=== PATIENT | male | born 2000 | race Caucasian/White ===

== ENCOUNTER 2024-04-15 08:34 | Outpatient (REF) | payer OTHER, SELFPAY ==
--- NOTE | ~2024-04-15 | XR_ITS ---
EXAMINATION: XR SACROILIAC JOINTS CLINICAL INFORMATION: Ankylosing spondylitis of multiple sites in the spine COMPARISON: None available. TECHNIQUE: 3 views of the sacroiliac joints FINDINGS: Bones and soft tissues are normal. No fracture. Alignment is anatomic. Sacroiliac joint spaces are well-maintained without erosions or surrounding sclerosis. XR/XR sacroiliac joint min 3V IMPRESSION: Normal sacroiliac joints.
--- NOTE | ~2024-04-15 | XR_ITS ---
EXAMINATION: XR LUMBOSACRAL SPINE WITH OBLIQUES CLINICAL INFORMATION: Ankylosing spondylitis of multiple sites and spine COMPARISON: None available. TECHNIQUE: AP, both oblique, and lateral views of the lumbar spine. Lateral view of the lumbosacral junction. FINDINGS: There is straightening of the usual lumbar lordosis which can be seen with muscle spasm. The vertebral bodies and posterior elements are normal. The disc spaces are preserved and the vertebral alignment is normal. The paraspinal soft tissues are normal. No syndesmophytes are present. XR/XR lumbar spine 4V min IMPRESSION: 1. Muscle spasm. 2. No evidence of ankylosing spondylitis of the lumbar spine.
[2024-04-15 09:40] LABS: MANUAL DIFF FLAG NO
[2024-04-15 09:57] LABS: Basophils Percent Auto 0.8 % (0-2); Eosinophils Absolute Auto 0.2 X10*3/uL (0.0-0.4); Hematocrit 41.3 % (42.0-52.0); Hemoglobin 14.1 g/dl (14.0-18.0); Imm Gran Abs Auto 0.02 X10*3/uL (0.00-0.03); Imm Gran Pct Auto 0.4 % (0.0-0.4); Lymphocytes Absolute Auto 1.4 X10*3/uL (1.2-4.9); Lymphocytes Percent Auto 27.8 % (20-40); Mean Corpuscular HGB Conc 34.1 g/dl (31.0-36.0); Mean Corpuscular Hemoglobin 31.1 pg (27.0-33.0); Mean Platelet Volume 9.9 fL (9.4-12.4); Monocytes Absolute Auto 0.5 X10*3/uL (0.1-1.2); Monocytes Percent Auto 10.8 % (2-11); Neutrophils Absolute Auto 2.8 x10*3/uL (2.0-8.3); Neutrophils Percent Auto 57.2 % (45-73); Platelet Count 202 X10*3/uL (160-400); Red Blood Count 4.54 X10*6/uL (4.60-5.80); White Blood Count 4.9 X10*3/uL (4.8-10.8)
[2024-04-15 10:26] LABS: Alanine Aminotransferase 13 U/L (0-40); Albumin Level 4.6 g/dL (3.5-5.0); Alkaline Phosphatase 56 U/L (39-117); Anion Gap 11 (12-20); Aspartate Amino Transferase 20 U/L (5-37); Bilirubin Total 0.5 mg/dL (0.0-1.0); Blood Urea Nitrogen 13 mg/dL (9-16); C Reactive Protein < 0.10 mg/dL (< or = 0.50); Calcium 9.8 mg/dL (8.4-10.2); Carbon Dioxide 27 mmol/L (22-29); Chloride 108 mmol/L (96-108); Estimated Glomerular Filt Rate > 60; Glucose Random 74 mg/dL (60-115); Potassium 4.2 mmol/L (3.3-5.1); Sodium 142 mmol/L (135-145); Total Protein 7.2 g/dL (6.5-8.0)
[2024-04-15 10:38] LABS: Erythrocyte Sedimentation Rate 3 MM/HR (0-15); HBS Num1 0.78 mIU/mL (0-7.99); HBc Num1 0.13 S/CO (0.00-0.79); HBsAGNum1 0.22 S/CO (0.00-0.99); Hepatitis A Antibody IgM 0.15 Index (0-0.79); Hepatitis B Core Antibody Nonreactive (Nonreactive); Hepatitis B Surface Antigen Negative (Negative); ~HepC Num1 0.08 S/CO (0.00-0.79); ~Hepatitis A Antibody IgM Nonreactive (Nonreactive); ~Hepatitis B Surface Antibody NONREACTIVE (Nonreactive); ~Hepatitis C Antibody Nonreactive (Nonreactive)
[2024-04-18 07:39] LABS: TS Negative Control Passed; TS Panel A 0; TS Panel B 0; TS Positive Control Passed; TSpotTB Negative (Negative)
== END 2024-04-15 08:35 | disposition home or self-care (01) ==
LOC: HO.LAB 08:34
PROVIDERS: PCP Pediatrics Adolescent Medicine; Visit Provider Student in an Organized Health Care Education/Training Program
DX: Z11.7 Encounter for testing for latent tuberculosis infection (principal); Z11.59 Encounter for screening for other viral diseases; M45.0 Ankylosing spondylitis of multiple sites in spine; Z72.89 Other problems related to lifestyle
CPT/HCPCS: 36415; 72110; 72202; 80053; 85025; 85652; 86140; 86481; 86704; 86706; 86709; 86803; 87340

== ENCOUNTER 2024-04-15 08:34 | Outpatient (AMB) | payer OTHER, SELFPAY ==
--- NOTE | 2024-04-15 08:42 | A.OFFVIS_ITS ---
Vital Signs 04/15/24 09:08 Height 5 ft 5 in Weight 140 lb 10.479 oz BMI 23.4 BP 116/72 Blood Pressure Location Rt brachial Position Sitting Pulse 81 Pulse Source Pulse Oximeter Pulse Oximetry (%) 99 Oxygen Delivery Method Room Air Intake Visit Reasons: Intake Note: New patient presents today for consult. His symptoms started approx 2014. Today he c/o joint pain and stiffness in upper thigh/hip area on both sides. He was previously followed by Dr Liu and Dr Vargas. Last rheumatology visit about 1 year ago. Has tried NSAIDS and Humira. Currently on Humira once a month. Specialty pharmacy is [facility]. Fan Blade Aligner Required: No Accompanied by: Self / Same As Patient Allergies No Known Allergies Allergy (Verified 04/15/24 08:54) Medication List - Last Reconciled 04/15/24 by bUaldo Hernandez MD adalimumab (Humira(CF)) 40 mg subcut Q4W buspirone 7.5 mg PO DAILY citalopram 40 mg PO DAILY HPI Comments Details: This is a 23-year-old male who presents for evaluation of ankylosing spondylitis. He was diagnosed in 2016 initially with juvenile arthritis then the diagnosis was switched to HLA B27 positive ankylosing spondylitis. He would have pain and stiffness in his buttocks. He was on sulfasalazine briefly with very little response, he was switched after a few months to Humira which has been working quite well. He was on Humira every 2 weeks. From 2015 to 2018 patient did not take his Humira and was having flare-ups. Over last year patient has spaced out his Humira to every 4 weeks. And has been doing quite well on that regimen. He denies any history suggestive of iritis or colitis. Denies any history of psoriasis. He has a brother with HLA B27 positive ankylosing spondylitis, mother with positive HLA B27 as well as a maternal aunt. He has no complaints today [facility] Medical History (Updated 04/15/24 @ 09:21 by Ubaldo Hernandez MD) HLA-B27 positive MARIBELL (juvenile idiopathic arthritis) Surgical History No history of previous surgery Family History Brother Ankylosing spondylitis Mother No problems noted. Father No problems noted. Other Family history of arthritis Social History Alcohol intake: current Alcohol intake frequency: does not drink Patient Tobacco Use Status: Never used Tobacco Current occupational status: student Current occupation: [employer] Const Denies fever(s) and Denies weight loss ENT Denies neck pain Musc Denies back pain, Denies arthralgias, Denies joint swelling, Denies neck pain and Denies stiffness Physical Exam Const General: cooperative, healthy appearing and comfortable Nutritional Appearance: average body habitus Orientation/consciousness: patient oriented x3 Limitations: no limitations HEENT Head: Yes normocephalic and Yes atraumatic Mouth: moist mucous membranes Resp Effort & Inspection: normal respiratory effort and able to speak in complete sentences Auscultation: clear to auscultation bilaterally Cardio Rate: regular rate Rhythm: regular rhythm Skin General skin exam: no rashes or lesions noted Neuro General: patient oriented x3 Extrem Other: No active synovitis Normal range of motion of hands, wrists shoulders and elbows without pain Nailfold capillaroscopy Galo test 10-14 cm Normal lateral flexion test bilaterally Negative straight leg raise test, negative MIRZA test bilaterally Assessment & Plan Assessment & Plan (1) Ankylosing spondylitis of multiple sites in spine: Comment: Positive HLA B27. dx 2016 L>R buttock pain. Minimal benefit with sulfasalazine Humira q.2 weeks 2015-present complete response. Spaced out by patient since 2022 to q4 weeks. Effective Code(s): M45.0 - Ankylosing spondylitis of multiple sites in spine Category: Medical Plan: This is a 23-year-old male with HLA B27 positive ankylosing spondylitis who presents as a new patient. Patient was diagnosed in 2016 initially with juvenile arthritis then the diagnosis was switched to ankylosing spondylitis. He had minimal benefit with sulfasalazine and was switched to Humira with complete response. Patient spaced out his Humira to q.4 weeks a year ago without any changes symptoms. He is doing quite well today. No active synovitis on exam. Check basic labs. Check baseline SI joint and L-spine x-rays Has 1 Humira injection left. Start prior authorization for Humira 40 mg q.4 weeks Labs before next visit in 6 months Plan I spent 47 minutes reviewing patient's chart, evaluating patient, ordering diagnostic workup, counseling patient and documenting in the chart Orders: Orders Complete Blood Count Auto Diff Today M45.0 - Ankylosing spondylitis of multiple sites in spine Comprehensive Met. Panel Today M45.0 - Ankylosing spondylitis of multiple sites in spine Hepatitis A,B,C Profile Today Z11.59 - Encounter for screening for other viral diseases XR sacroiliac joint min 3V Today M45.0 - Ankylosing spondylitis of multiple sites in spine XR lumbar spine 4V min Today M45.0 - Ankylosing spondylitis of multiple sites in spine Comprehensive Met. Panel 6 Months M45.0 - Ankylosing spondylitis of multiple sites in spine Erythrocyte Sedimentation Rate 6 Months M45.0 - Ankylosing spondylitis of multiple sites in spine C Reactive Protein Today M45.0 - Ankylosing spondylitis of multiple sites in spine Erythrocyte Sedimentation Rate Today M45.0 - Ankylosing spondylitis of multiple sites in spine T Spot TB Today Z11.7 - Encounter for testing for latent tuberculosis infection Complete Blood Count Auto Diff 6 Months M45.0 - Ankylosing spondylitis of multiple sites in spine C Reactive Protein 6 Months M45.0 - Ankylosing spondylitis of multiple sites in spine Coding Level of Care Code New Pt Level 4 (88616) Diagnoses Ankylosing spondylitis of multiple sites in spine M45.0
[2024-04-15 09:08] VITALS: BP 116/72; PULSE 81; O2SAT 99; BMI 23.4
== END 2024-04-15 09:15 | disposition home or self-care (01) ==
PROVIDERS: PCP Pediatrics Adolescent Medicine; Visit Provider Student in an Organized Health Care Education/Training Program
DX: M45.0 Ankylosing spondylitis of multiple sites in spine (principal)
CPT/HCPCS: 99204

== ENCOUNTER 2024-10-21 08:09 | Outpatient (AMB) | payer OTHER, SELFPAY ==
--- NOTE | 2024-10-21 08:31 | MHC.OFFVIS ---
Vital Signs 10/21/24 08:33 Height 5 ft 5 in Weight 141 lb 5.061 oz BMI 23.5 BP 102/60 Blood Pressure Location Lt brachial Position Sitting Pulse 66 Pulse Source Pulse Oximeter Pulse Oximetry (%) 99 Oxygen Delivery Method Room Air Intake Visit Reasons: /CM APT Intake Note: Patient presents for . Allergies No Known Allergies Allergy (Verified 10/21/24 08:33) Medication List - Last Reconciled 10/21/24 by Ubaldo Hernandez MD buspirone 7.5 mg PO DAILY citalopram 40 mg PO DAILY Humira(CF) (adalimumab) 40 mg (0.4 mL) subcut Q2W NS HPI Comments Details: 23-year-old male with ankylosing spondylitis returns for follow-up. About 2 months ago patient started having right hip pain. Pain that is similar to his pain when it was initially diagnosed with his inflammatory arthritis. He states that a week before doing his Humira injection he started to have right hip pain. At that time we advanced his Humira to 40 mg every 2 weeks. Since then he has been doing quite well. Denies any joint pain swelling or stiffness. Denies any recent illnesses. Initial history: This is a 23-year-old male who presents for evaluation of ankylosing spondylitis. He was diagnosed in 2016 initially with juvenile arthritis then the diagnosis was switched to HLA B27 positive ankylosing spondylitis. He would have pain and stiffness in his buttocks. He was on sulfasalazine briefly with very little response, he was switched after a few months to Humira which has been working quite well. He was on Humira every 2 weeks. From 2015 to 2019 patient did not take his Humira and was having flare-ups. Over last year patient has spaced out his Humira to every 4 weeks. And has been doing quite well on that regimen. He denies any history suggestive of iritis or colitis. Denies any history of psoriasis. He has a brother with HLA B27 positive ankylosing spondylitis, mother with positive HLA B27 as well as a maternal aunt. He has no complaints today [facility] Medical History HLA-B27 positive MARIBELL (juvenile idiopathic arthritis) Surgical History No history of previous surgery Family History Brother Ankylosing spondylitis Mother No problems noted. Father No problems noted. Other Family history of arthritis Social History Alcohol intake: current Alcohol intake frequency: does not drink Patient Tobacco Use Status: Never used Tobacco Current occupational status: student Current occupation: [employer] Review of Systems Const Denies fever(s) and Denies weight loss ENT Denies neck pain Musc Denies back pain, Denies arthralgias, Denies joint swelling, Denies neck pain and Denies stiffness Physical Exam Vital Signs: Last Vital Signs Pulse 66 10/21/24 08:33 BP 102/60 10/21/24 08:33 Pulse Ox 99 10/21/24 08:33 Oxygen Delivery Method Room Air 10/21/24 08:33 BMI result Body Mass Index 23.5 Const General: cooperative, healthy appearing and comfortable Nutritional Appearance: average body habitus Orientation/consciousness: patient oriented x3 Limitations: no limitations HEENT Head: Yes normocephalic and Yes atraumatic Mouth: moist mucous membranes Resp Effort & Inspection: normal respiratory effort and able to speak in complete sentences Auscultation: clear to auscultation bilaterally Cardio Rate: regular rate Rhythm: regular rhythm Skin General skin exam: no rashes or lesions noted Neuro General: patient oriented x3 Extrem Other: No active synovitis Normal range of motion of hands, wrists shoulders and elbows without pain Nailfold capillaroscopy Galo test 10-14.2 cm Normal lateral flexion test bilaterally Negative straight leg raise test, negative MIRZA test bilaterally Assessment & Plan Assessment & Plan (1) Ankylosing spondylitis of multiple sites in spine: Comment: Positive HLA B27. dx 2015 L>R buttock pain. Minimal benefit with sulfasalazine Humira q.2 weeks 2015-present complete response. Spaced out by patient since 2022 to q4 weeks. Effective, then flare in 08/2024, humira back to 40mg [id number] Code(s): M45.0 - Ankylosing spondylitis of multiple sites in spine Category: Medical Plan: This is a 23-year-old male with HLA B27 positive ankylosing spondylitis who presents for follow-up. Patient was doing quite well on Humira 40 mg every 4 week. About 2 months ago he started having worsening right hip pain. We advanced his Humira to 40 mg every 2 weeks with resolution of symptoms. He is doing quite well on 40 mg every 2 weeks. Continue with Humira 40 mg every 2 weeks Labs today and before next visit in 6 months (2) High risk medication use: Code(s): Z79.899 - Other intermediate project manager (current) drug therapy Category: Medical Plan: Side effects of Humira were discussed with the patient in detail including increased risk of infection, demyelinating disease, reactivation of latent TB, possible increased risk of solid and skin tumors. Patient fully aware. Advised patient to seek medical care [facility]I if patient has an infection and advised patient to stop the medication until the infection is resolved. Plan I spent 25 minutes reviewing patient's chart, evaluating patient, ordering diagnostic workup, counseling patient and documenting in the chart Orders: Orders Complete Blood Count Auto Diff 6 Months M45.0 - Ankylosing spondylitis of multiple sites in spine C Reactive Protein 6 Months M45.0 - Ankylosing spondylitis of multiple sites in spine Comprehensive Met. Panel 6 Months M45.0 - Ankylosing spondylitis of multiple sites in spine Erythrocyte Sedimentation Rate 6 Months M45.0 - Ankylosing spondylitis of multiple sites in spine Coding Level of Care Code Est Pt Level 4 (12721) Diagnoses Ankylosing spondylitis of multiple sites in spine M45.0 High risk medication use Z79.899
[2024-10-21 08:33] VITALS: BP 102/60; PULSE 66; O2SAT 99; BMI 23.5
== END 2024-10-21 08:53 | disposition home or self-care (01) ==
PROVIDERS: PCP Pediatrics Adolescent Medicine; Visit Provider Student in an Organized Health Care Education/Training Program
DX: M45.0 Ankylosing spondylitis of multiple sites in spine (principal); Z79.899 Other long term (current) drug therapy
CPT/HCPCS: 99214

== ENCOUNTER 2025-03-23 12:28 | Outpatient (REF) | payer OTHER, SELFPAY ==
[2025-03-23 12:42] LABS: MANUAL DIFF FLAG NO
[2025-03-23 13:10] LABS: Basophils Percent Auto 0.6 % (0-2); Eosinophils Absolute Auto 0.1 X10*3/uL (0.0-0.4); Eosinophils Percent Auto 1.6 % (0-4); Hematocrit 41.5 % (42.0-52.0); Hemoglobin 14.7 g/dl (14.0-18.0); Imm Gran Abs Auto 0.02 X10*3/uL (0.00-0.03); Imm Gran Pct Auto 0.4 % (0.0-0.4); Lymphocytes Absolute Auto 1.7 X10*3/uL (1.2-4.9); Mean Corpuscular HGB Conc 35.4 g/dl (31.0-36.0); Mean Corpuscular Hemoglobin 31.2 pg (27.0-33.0); Mean Corpuscular Volume 88.1 fL (80.0-98.0); Mean Platelet Volume 9.6 fL (9.4-12.4); Monocytes Absolute Auto 0.6 X10*3/uL (0.1-1.2); Monocytes Percent Auto 11.3 % (2-11); Neutrophils Absolute Auto 2.5 x10*3/uL (2.0-8.3); Neutrophils Percent Auto 51.1 % (45-73); Platelet Count 252 X10*3/uL (160-400); Red Blood Count 4.71 X10*6/uL (4.60-5.80); Red Cell Distribution Width 11.8 % (11.0-16.0); White Blood Count 4.9 X10*3/uL (4.8-10.8)
[2025-03-23 13:37] LABS: Alanine Aminotransferase 23 U/L (0-40); Albumin Level 4.7 g/dL (3.5-5.0); Alkaline Phosphatase 65 U/L (39-117); Anion Gap 11 (12-20); Aspartate Amino Transferase 29 U/L (5-37); Bilirubin Total 0.7 mg/dL (0.0-1.0); Blood Urea Nitrogen 15 mg/dL (9-16); C Reactive Protein < 0.10 mg/dL (< or = 0.50); Calcium 9.6 mg/dL (8.4-10.2); Carbon Dioxide 28 mmol/L (22-29); Chloride 107 mmol/L (96-108); Estimated Glomerular Filt Rate > 60; Glucose Random 84 mg/dL (60-115); Potassium 4.6 mmol/L (3.3-5.1); Sodium 141 mmol/L (135-145); Total Protein 7.1 g/dL (6.5-8.0)
[2025-03-23 13:49] LABS: Erythrocyte Sedimentation Rate 2 MM/HR (0-15)
--- OUTSIDE RECORDS SUMMARY | 2025-03-23 14:47 | XMS_ITS | Clinical Summary ---
Author Organization [facility] Address [address] [place] [address] Phone Care Team Providers Care Director Of Religious Activities Name Role Phone Unavailable Primary Care Provider Unavailabl e Allergies Active Allergy Reactions Criticality Noted Date Comments Pistachio Nut (Diagnostic) Tree Nuts (Food) Medications HUMIRA 40 MG/0.8ML Prefilled Syringe Kit 11 06/20/2018 Active Active Problems Problem Noted Date Diagnosed Date Generalized anxiety disorder 07/28/2015 Overview (06/23/2018): Generalized anxiety disorder (300.02) Onset: 07/28/2015 Added by: Abisai Hammond Assessment & Plan (12/06/2021 12:10 PM EST): Doing well off Cymbalta > 6 months, follow up as needed Assessment & Plan (05/14/2020 9:34 AM EDT): This medical issue is stable. Specialist is seen regulary and doing well. Cymbalta working well. Assessment & Plan (06/26/2018 10:01 AM EDT): Stable and doing well on Zoloft 50 Juvenile ankylosing spondylitis 05/19/2015 Overview (06/23/2018): Joint pain, HLAB27 +, Ankylosing spondylitis (719.48) Onset: 05/19/2015 Added by: Abisai Hammond Assessment & Plan (12/06/2021 12:10 PM EST): Sees Rheum, Humira every 2 weeks Doing well. Assessment & Plan (05/14/2020 9:33 AM EDT): This medical issue is stable. Specialist is seen regulary and doing well. Needs new Volunteer Recruitment Coordinator- he will arrange w new provider. Humira working well. Assessment & Plan (06/26/2018 10:01 AM EDT): Doing MUCH better since seeing Dr. Liu and using Humira every 2 weeks Resolved Problems Problem Noted Date Diagnosed Date Resolved Date Sebaceous cyst 09/03/2017 06/25/2018 Overview (06/23/2018): Sebaceous cyst (706.2) Onset: 09/03/2017 Added by: Eligio Lee Short stature 09/13/2016 06/25/2018 Overview (06/23/2018): Short stature (783.43) Onset: 09/13/2016 Added by: Abisai Hammond Immunizations Immunization Administration Dates Next Due COVID-19 Pfizer, monovalent, 12+ years 1,03/20/2021 DTaP 5 01/30/2005, 1,07/04/2000,05/02,02/29/2000 H1N1 11/05/2009,09/23/2009 HPV Vaccine 9 Valent 11/27/2016,07/24/2016,03/26 Hep A, ped/adol 05/25/2013,03/23/2011 Hep B, ped/adol 10/02/2000,04/01/2000,02/29/2000 Hib (PRP-T) 07/11/2001, 0,05/02/2000,02/28 IPV 01/28/2004, 1,05/02/2000,02/28 Influenza, injectable, quadr ivalent, preservative free 09/15/2021,09/12/2018,08/15/2017,10/15,10/03/2015 Influenza, injectable, triva lent, preservative free 10/02/2010,08/16/2009,09/07/2008,09/16,09/24/2006,10/29/2005 Influenza, intranasal, quadrivalent 09/27/2014,1 12/07/2012 Influenza, intranasal, trivalent 09/19/2012,08/03 MMR 01/30/2005,04/04/2001 Meningococcal B Trumenba 06/25/2018,03/27/2017 Meningococcal Conj (Menactra) MCV4P 03/26/2016,0 04/09/2011 PPD Test 11/28/2021 Pneumococcal Conjugate 04/04/2001,01/03/2001,12/1999 Td (adult) (MBL), 2 Lf tetan us toxoid, PF, adsorbed 12/06/2021 Tdap 04/09/2011 Varicella 04/10/2010,01/03/2001 Social History Tobacco Use Types Packs/Day Years Used Date Smoking Tobacco: Never Smokeless Tobacco: Never Comments:Never Smoker Hunger/Food Answer Date Recorded In the last 12 months, did y ou or your family ever eat less than you felt you should because there wasn't enough money for food? No 12/06/2021 Stable Housing Answer Date Recorded Are you worried that in the next 2 months you may not have stable housing? No 12/06/2021 Transportation Concerns Answer Date Rec orded In the last 12 months, have you or your family ever had to go without healthcare because you didn't have a way to get there? No 12/06/2021 Hazards in Home Answer Date Recorded Think about the place you li ve. Do you have problems with any of the following? Pests (mice or roaches), mold, no/not working smoke detectors, water leaks, no window guards. No 2021 Financing Utilities Answer Date Recorde d In the last 12 months, has t he electric, gas, oil, or water company threatened to shut off your services in your home? No 12/06/2021 Safety at Home Answer Date Recorded Are you or your family worried about feeling saf e in your home? No 12/06/2021 Outside Support Answer Date Recorded Do you feel that you need mo re support from other people or programs to help you care for yourself or your family? No 12/06/2021 Understanding Health Concerns Answer Da te Recorded Do you need help understandi ng your or your child's healthcare needs (diagnosis, medications, plan, etc.)? No 12/06/2021 Financing Health Concerns Answer Date R ecorded In the last 12 months, was t here a time when your child needed to see a doctor or get medications or supplies but could not because of cost? No 12/06/2021 Missing School or Work Answer Date Cong rded Did you or your child miss s chool or work because of a health problem that could have been avoided? No 12/06/2021 Sex and Gender Information Value Date Recorded Sex Assigned at Not on file Legal Sex Male 6:37 PM EDT Gender Identity Male 11/28/2021 1:06 PM EST Sexual Orientation Straight 05/14/2020 9: 35 AM EDT Last Filed Vital Signs Vital Sign Reading Time Taken Comments Blood Pressure 120/80 12/06/2021 11:34 AM EST Pulse 88 12/06/2021 11:34 AM EST Temperature 36.6 ??C (97.8 ??F) 12/06/2021 11:[address] Respiratory Rate - - Oxygen Saturation 99% 12/06/2021 11:34 AM EST Inhaled Oxygen Concentration - - Weight 61.3 kg (135 lb 2.3 oz) 12/06/2021 11:34 AM EST Height 166 cm (5' 5.35 ) 12/06/2021 11:34 AM EST Body Mass Index 22.25 12/06/2021 11:34 AM EST Plan of Treatment Health Maintenance Due Date Last Done Comments Influenza Vaccines (#1) 2024 09/15/20, 09/12/2018, 08/15/2017, Additional history exists COVID-19 Vaccine (2023-2 5 season) 2024 12/12/2021, 04/14/2021, 03/20/2021 DTaP,Tdap,and Td Vaccines (8 - Td or Tdap) 12/06/2031 12/06/2021, 04/09/2011, 01/30/2005, Additional history exists Hepatitis B Vaccines Completed 10/02/2000, 04/01/2000, 02/29/2000 Pneumococcal Vaccine Completed 04/04/2001, 01/03/2001, 10/02/2000 HIB Vaccines Completed 07/11/2001, 01/2000, 05/02/2000, Additional history exists IPV Vaccines Completed 01/28/2004, 01/2001, 05/02/2000, Additional history exists MMR Vaccines Completed 01/30/2005, 04/04/2001 Varicella Vaccines Completed 04/10/2010, 01/03/2001 Hepatitis A Vaccines Completed 05/25/2013, 03/23/20 11 Meningococcal Vaccine Completed 03/26/2016, 011 HPV Vaccines Completed 11/27/2016, 07/03, 03/26/2016 Men B Vaccine Completed 06/25/2018, 03/27/2017 Insurance [facility]
--- OUTSIDE RECORDS SUMMARY | 2025-03-23 14:47 | XMS_ITS | Encounter Summary ---
Author Organization [facility] Address [address] [place] [address] Care Team Providers Care Research Consultant Name Role Phone Abisai Hammond MD Primary Care Provider [phone] Angel Vargas MD Unavailable Unavailable Encounter Details Date Type Department Care Team (Late st Contact Info) Description 08/01/2021 Scanned Document [facility] Rheumatology [address] [phone] Angel Vargas MD Social History Tobacco Use Types Packs/Day Years Used Date Smoking Tobacco: Never Smokeless Tobacco: Never Sex and Gender Information Value Date Recorded Sex Assigned at Not on file Legal Sex Male 11:43 AM EST Gender Identity Not on file Sexual Orientation Not on file documented as of this encounter Plan of Treatment Not on file documented as of this encounter Visit Diagnoses Not on filedocumented in this encounter Care Teams Research Consultant Relationship Specialty Start Date End Date Abisai Hammond MD [address] [place] [id number] PCP - General Pediatric, Adolescent Medicine 10/05/20 Angel Vargas MD [address] [place] [id number] Rheumatology 02/16/24 documented as of this encounter
--- OUTSIDE RECORDS SUMMARY | 2025-03-23 14:47 | XMS_ITS ---
Author Name [facility] Organization Unknown History of Medication Use Medication Directions Dispensed Refills Start Date End Date Stat us busPIRone (BUSPAR) 7.5 MG tablet 01/14/2024 active citalopram (CeleXA) 20 MG tablet 03/29/2021 active Problems Problem Status Onset Date Problem Type Date of Resoluti on Source Ankylosing spondylitis of multiple sites in spine active 2021-03-30 ProblemAct [facility] T HLA B27 positive active 2021-03-30 ProblemAct [facility] Encounter for monitoring of adalimumab therapy active 2021-03-30 ProblemAct [facility] MARIBELL (juvenile idiopathic arthritis) active 2021-03-30 ProblemAct [facility] Left hip pain active 2021-03-30 ProblemAct [facility] T Encounters Encounter Type Encounter Reason Primary Diagnosis Location Date Ambulatory Ankylosing spondylitis of multiple sites in spine [facility] 04/03/2023 Ambulatory Ankylosing spondylitis of multiple sites in spine [facility] 03/28/2022 Care Team Organization Name Specialty Phone Email Start Date End Da te [facility] [facility] ABISAI HAMMOND Primary Care 03/28/2022 03/28/2022 [employer] Abisai Hammond Primary Care 03/28/2022
--- OUTSIDE RECORDS SUMMARY | 2025-03-23 14:47 | XMS_ITS | Encounter Summary ---
Author Organization [facility] Address [address] [place] [address] Care Team Providers Care Airveyor Operator Name Role Phone Abisai Hammond MD Primary Care Provider [phone] Angel Vargas MD Unavailable Unavailable Encounter Details Date Type Department Care Team (Late st Contact Info) Description 10/20/2021 Scanned Document [facility] Rheumatology [address] [phone] Angel Vargas MD Social History Tobacco Use [...] on filedocumented in this encounter Care Teams Airveyor Operator Relationship Specialty Start Date End Date Abisai Hammond MD [address] [place] [phone] PCP - General Pediatric, Adolescent Medicine 10/05/20 Angel Vargas MD [address] [place] [phone] Rheumatology 02/16/24 documented as of this encounter
--- OUTSIDE RECORDS SUMMARY | 2025-03-23 14:47 | XMS_ITS | Encounter Summary ---
Author Organization [facility] Address [address] [place] [address] Care Team Providers Care Library Assistant Name Role Phone Abisai Hammond MD Primary Care Provider [phone] Angel Vargas MD Unavailable Unavailable Encounter Details Date Type Department Care Team (Late st Contact Info) Description 02/15/2022 Scanned Document [facility] Rheumatology [address] [phone] Angel Vargas MD Social History Tobacco Use [...] on filedocumented in this encounter Care Teams Library Assistant Relationship Specialty Start Date End Date Abisai Hammond MD [address] [place] [phone] PCP - General Pediatric, Adolescent Medicine 10/05/20 Angel Vargas MD [address] [place] [phone] Rheumatology 02/16/24 documented as of this encounter
--- OUTSIDE RECORDS SUMMARY | 2025-03-23 14:47 | XMS_ITS | Encounter Summary ---
Author Organization [facility] Address [address] [place] [address] Phone Care Team Providers Care Mail Clerks Supervisor Name Role Phone Abisai Hammond MD Primary Care Provider [phone] Encounter Details Date Type Department Care Team (Late st Contact Info) Description 08/21/2011 Conversion Encounter Pediatric And Adolescent Medicine - [place] [address] [place] [address] Social History Tobacco Use Types Packs/Day Years Used Date Smoking Tobacco: Never Assessed Sex and Gender Information Value Date Recorded Sex Assigned at Not on file Legal Sex Male 6:37 PM EDT Gender Identity Male 11/28/2021 1:06 PM EST Sexual Orientation Straight 05/14/2020 9: 35 AM EDT documented as of this encounter Plan of Treatment Not on file documented as of this encounter Visit Diagnoses Not on filedocumented in this encounter Care Teams Mail Clerks Supervisor Relationship Specialty Start Date End Date Abisai Hammond MD [address] [place] [address] PCP - General 04/09/18 05/25/22 documented as of this encounter
--- OUTSIDE RECORDS SUMMARY | 2025-03-23 14:47 | XMS_ITS | Encounter Summary ---
Author Organization [facility]ly [facility] Address [address] [place] [address] Care Team Providers Care Corporate Event Planner Name Role Phone Abisai Hammond MD Primary Care Provider [phone] Angel Vargas MD Unavailable Unavailable Encounter Details Date Type Department Care Team (Late st Contact Info) Description 05/02/2021 Scanned Document [facility] Rheumatology [address] [phone] Angel Vargas MD Social History Tobacco Use [...] on filedocumented in this encounter Care Teams Corporate Event Planner Relationship Specialty Start Date End Date Abisai Hammond MD [address] [place] [address] PCP - General Pediatric, Adolescent Medicine 10/05/20 Angel Vargas MD [address] [place] [address] Rheumatology 02/16/24 documented as of this encounter
--- OUTSIDE RECORDS SUMMARY | 2025-03-23 14:47 | XMS_ITS | Clinical Summary ---
Author Organization [facility] Address [address] [place] [address] Care Team Providers Care Pull Tab Dealer Name Role Phone Abisai Hammond MD Primary Care Provider [phone] Angel Vargas MD Unavailable Unavailable Allergies Active Allergy Reactions Criticality Noted Date Comments Nuts Other (See Comments) 03/28/2022 Pistachio Nut (Diagnostic) Hives Medium Medications citalopram (CeleXA) 20 MG tablet 03/29/2021 Active Humira, 2 Syringe, 40 MG/0.4ML prefilled syringe injection CITRATE FREEIndications: Ankylosing spondylitis of multiple sites in spine (HCC),HLA B27 positive Inject 0.4 mL (40 mg total) under the skin every 14 days (2 weeks). 2 each 5 02/10/2024 Active busPIRone (BUSPAR) 7.5 MG tablet 01/14/2024 Active Active Problems Problem Noted Date Diagnosed Date Ankylosing spondylitis of multiple sites in spin e 03/30/2021 MARIBELL (juvenile idiopathic arthritis) 03/30/2021 HLA B27 positive 03/30/2021 Left hip pain 03/30/2021 Encounter for monitoring of adalimumab therapy 0 03/30/2021 Social History Tobacco Use Types Packs/Day Years Used Date Smoking Tobacco: Never Smokeless Tobacco: Never Tobacco Cessation:Counseling Given: Not Answered Sex and Gender Information Value Date Recorded Sex Assigned at Not on file Legal Sex Male 11:43 AM EST Gender Identity Not on file Sexual Orientation Not on file Last Filed Vital Signs Vital Sign Reading Time Taken Comments Blood Pressure 115/70 04/03/2023 1:56 PM EDT Pulse 57 04/03/2023 1:56 PM EDT Temperature 36.7 ??C (98 ??F) 04/03/2023 1:56 PM EDT Respiratory Rate - - Oxygen Saturation 97% 04/03/2023 1:56 PM EDT Inhaled Oxygen Concentration - - Weight 61.2 kg (135 lb) 04/03/2023 1:56 PM EDT Height 165.1 cm (5' 5 ) 04/03/2023 1:56 PM EDT Body Mass Index 22.47 04/03/2023 1:56 PM EDT Plan of Treatment Health Maintenance Due Date Last Done Comments Hepatitis C Virus Screening 1999 Quantiferon Gold TB 2009 HIV Screening 2012 HPV Vaccines (1 - Male 3-dos e series) 2014 DTaP/Tdap/Td Vaccines (1 - Tdap) 2018 Hepatitis B Vaccines (1 of 3 - 19+ 3-dose series) 2018 Pneumococcal Vaccine: Pediat shauna (0-5 Years) and At-Risk Patients (6 to 49 Years) (1 of 2 - PCV) 2018 COVID-19 Vaccine (3 - Pfizer risk series) 05/12/2021 04/14/2021, 03/20/2021 Influenza Vaccine 07/02/2024 09/15/2021, , 08/15/2017, Additional history exists Insurance [facility] Care Teams Pull Tab Dealer Relationship Specialty Start Date End Date Abisai Hammond MD [address] [place] [address] PCP - General Pediatric, Adolescent Medicine 10/05/20 Angel Vargas MD [address] [place] [address] Rheumatology 02/16/24
--- OUTSIDE RECORDS SUMMARY | 2025-03-23 14:47 | XMS_ITS | Encounter Summary ---
Author Organization [facility] Address [address] [place] [address] Care Team Providers Care Equipment Processor Name Role Phone Abisai Hammond MD Primary Care Provider [phone] Angel Vargas MD Unavailable Unavailable Encounter Details Date Type Department Care Team (Late st Contact Info) Description 03/19/2024 Scanned Document [facility] RHEUMATOLOGY SCAN Rheumatology, Scan Social History Tobacco Use Types Packs/Day Years [...] on filedocumented in this encounter Care Teams Equipment Processor Relationship Specialty Start Date End Date Abisai Hammond MD [address] [place] [address] PCP - General Pediatric, Adolescent Medicine 10/05/20 Angel Vargas MD [address] [place] [address] Rheumatology 02/16/24 documented as of this encounter
== END 2025-03-23 12:29 | disposition home or self-care (01) ==
LOC: HO.LAB 12:28
PROVIDERS: Visit Provider Student in an Organized Health Care Education/Training Program
DX: M45.0 Ankylosing spondylitis of multiple sites in spine (principal)
CPT/HCPCS: 36415; 80053; 85025; 85652; 86140

== ENCOUNTER 2025-03-25 13:33 | Outpatient (AMB) | payer OTHER, SELFPAY ==
--- NOTE | 2025-03-25 13:40 | MHC.OFFVIS ---
Vital Signs 03/25/25 13:45 Height 5 ft 5 in Weight 143 lb 8.335 oz BMI 23.9 BP 120/70 Blood Pressure Location Rt brachial Position Sitting Pulse 66 Pulse Source Pulse Oximeter Pulse Oximetry (%) 98 Oxygen Delivery Method Room Air Intake Visit Reasons: Intake Note: Patient presents for . Private Wealth Advisor Required: No Allergies No Known Allergies Allergy (Verified 03/25/25 13:47) HPI HPI : Details: In the morning when he wakes up he is experiencing pain localized to his lower ribs and his mid back. It resolves after he gets up. It has been occurring for a month. No nocturnal pain. No pleurisy. He does not experiences pain during the day. No new joint pain or new joint swelling. No recent infections. He continues to take Humira every other week. [facility] Medical History HLA-B27 positive MARIBELL (juvenile idiopathic arthritis) Surgical History No history of previous surgery Family History Brother Ankylosing spondylitis Mother No problems noted. Father No problems noted. Other Family history of arthritis Social History Alcohol intake: current Alcohol intake frequency: does not drink Patient Tobacco Use Status: Never used Tobacco Current occupational status: student Current occupation: [employer] Review of Systems Const All systems reviewed & are unremarkable except as noted in HPI and below Physical Exam Vital Signs: Last Vital Signs Pulse 66 03/25/25 13:45 BP 120/70 03/25/25 13:45 Pulse Ox 98 03/25/25 13:45 Oxygen Delivery Method Room Air 03/25/25 13:45 BMI result Body Mass Index 23.9 Const Other: General: Comfortable CVS: RRR Respiratory: clear to auscultation bilaterally. Good respiratory effort Skin: No lesions seen MSK: No synovitis. No tender joints. Normal range of motion of upper extremity and lower extremity. No tenderness to palpate SI joints. Negative MIRZA. Normal lumbar flexion. HEENT Mouth: moist mucous membranes Cardio Rate: regular rate Rhythm: regular rhythm Assessment & Plan Assessment & Plan (1) Ankylosing spondylitis of multiple sites in spine: Comment: He has developed 1 month of lower rib pain and mid back pain. He started a new exercise routine at least 2 months ago with working out at the gym twice a week with weightlifting. Unremarkable exam this visit. We discussed adjusting his routine in case myofascial strain is contributing. If he has no change in symptoms after incorporating a stretching work out in reducing his weights when weightlifting, I will pursue further imaging with chest x-ray and PFTs as ankylosing spondylitis can be associated with restrictive process affecting the lungs with restricting thoracic expanse ability. Patient agrees with plan. His recent labs revealed normal inflammatory markers, which is reassuring. Rheumatology history: Positive HLA B27. dx 2016 initially diagnosed as MARIBELL presenting with lower buttocks pain. L>R buttock pain. In the past he had elevated CRP 0.9 from reviewing records (?mg/dL). Failed NSAIDs ibuprofen, diclofenac and meloxicam. Minimal benefit with sulfasalazine. Humira q.2 weeks 2015-present complete response. Spaced out by patient since 2022 to q4 weeks. Effective, then flare in 08/2024, humira back to 40mg [id number]. X-rays SI joints 2023 normal. Code(s): M45.0 - Ankylosing spondylitis of multiple sites in spine Category: Medical Plan: Labs from March 2025 reviewed. He is up-to-date for drug monitoring on high-risk medication Continue with Humira 40 mg every 2 weeks Return to clinic in 3 months (2) High risk medication use: Code(s): Z79.899 - Other technician terminal and repeater (current) drug therapy Category: Medical Plan: See above Medications: Refilled Humira(CF) (adalimumab) 40 mg (0.4 mL) subcut Q2W 2 ea 2RF NS Coding Level of Care Code Est Pt Level 4 (35818) Complex EM visit Add On G2211 Diagnoses Ankylosing spondylitis of multiple sites in spine M45.0 High risk medication use Z79.899
[2025-03-25 13:45] VITALS: BP 120/70; PULSE 66; O2SAT 98; BMI 23.9
--- OUTSIDE RECORDS SUMMARY | 2025-03-25 15:56 | XMS_ITS | Encounter Summary ---
Author Organization [facility] Address [address] [place] [address] Care Team Providers Care Licensed Psychiatric Technician Name Role Phone Abisai Hammond MD Primary Care Provider [phone] Angel Vargas MD Unavailable Unavailable Encounter Details Date Type Department Care Team (Late st Contact Info) Description 10/20/2021 Scanned Document [facility] Rheumatology [address] [phone] Angel Vargas MD Social History Tobacco Use [...] on filedocumented in this encounter Care Teams Licensed Psychiatric Technician Relationship Specialty Start Date End Date Abisai Hammond MD [address] [place] [address] PCP - General Pediatric, Adolescent Medicine 10/05/20 Angel Vargas MD [address] [place] [address] Rheumatology 02/16/24 documented as of this encounter
--- OUTSIDE RECORDS SUMMARY | 2025-03-25 15:56 | XMS_ITS | Encounter Summary ---
Author Organization [facility] Address [address] [place] [address] Care Team Providers Care Flight Attendant Name Role Phone Abisai Hammond MD Primary Care Provider [phone] Angel Vargas MD Unavailable Unavailable Encounter Details Date Type Department Care Team (Late st Contact Info) Description 02/15/2022 Scanned Document [facility] Rheumatology [address] [phone] Angel Vargas MD Social History Tobacco Use [...] on filedocumented in this encounter Care Teams Flight Attendant Relationship Specialty Start Date End Date Abisai Hammond MD [address] [place] [address] PCP - General Pediatric, Adolescent Medicine 10/05/20 Angel Vargas MD [address] [place] [address] Rheumatology 02/16/24 documented as of this encounter
--- OUTSIDE RECORDS SUMMARY | 2025-03-25 15:56 | XMS_ITS | Encounter Summary ---
Author Organization [facility] Address [address] [place] [address] Phone Care Team Providers Care Supervisor Photocomposition Name Role Phone Abisai Hammond MD Primary Care Provider [phone] Encounter Details Date Type Department Care Team (Late st Contact Info) Description 08/21/2011 Conversion Encounter Pediatric And Adolescent Medicine - [place] [address] [place] [address] Social History Tobacco Use Types Packs/Day Years [...] on filedocumented in this encounter Care Teams Supervisor Photocomposition Relationship Specialty Start Date End Date Abisai Hammond MD [address] [place] [address] PCP - General 04/09/18 05/25/22 documented as of this encounter
--- OUTSIDE RECORDS SUMMARY | 2025-03-25 15:56 | XMS_ITS | Encounter Summary ---
Author Organization [facility] Address [address] [place] [address] Care Team Providers Care Mail Superintendent Name Role Phone Abisai Hammond MD Primary Care Provider [phone] Angel Vargas MD Unavailable Unavailable Encounter Details Date Type Department Care Team (Late st Contact Info) Description 08/01/2021 Scanned Document [facility] Rheumatology [address] [phone] Angel Vargas MD Social History Tobacco Use [...] filedocumented in this encounter Care Teams Mail Superintendent Relationship Specialty Start Date End Date Abisai Hammond MD [address] [place] [address] PCP - General Pediatric, Adolescent Medicine 10/05/20 Angel Vargas MD [address] [place] [address] Rheumatology 02/16/24 documented as of this encounter
--- OUTSIDE RECORDS SUMMARY | 2025-03-25 15:56 | XMS_ITS | Clinical Summary ---
Author Organization [facility] Address [address] [place] [address] Phone Care Team Providers Care Spice Cleaner Name Role Phone Unavailable Primary Care Provider [...] seen regulary and doing well. Needs new Payloader Operator- he will arrange w new provider. Humira [...] 12/06/2021 Missing School or Work Answer Date Cogn rded Did you or your child miss [...] Men B Vaccine Completed 06/25/2018, 03/27/[address] [facility]
--- OUTSIDE RECORDS SUMMARY | 2025-03-25 15:56 | XMS_ITS | Encounter Summary ---
Author Organization [facility] Address [address] [place] [address] Care Team Providers Care Card Punching Machine Operator Name Role Phone Abisai Hammond MD Primary Care Provider [phone] Angel Vargas MD Unavailable Unavailable Encounter Details Date Type Department Care Team (Late st Contact Info) Description 05/02/2021 Scanned Document [facility] Rheumatology [address] [phone] Angel Vargas MD Social History Tobacco Use [...] on filedocumented in this encounter Care Teams Card Punching Machine Operator Relationship Specialty Start Date End Date Abisai Hammond MD [address] [place] [address] PCP - General Pediatric, Adolescent Medicine 10/05/20 Angel Vargas MD [address] [place] [address] Rheumatology 02/16/24 documented as of this encounter
--- OUTSIDE RECORDS SUMMARY | 2025-03-25 15:56 | XMS_ITS | Encounter Summary ---
Author Organization [facility] Address [address] [place] [address] Care Team Providers Care Certified Histologic Technician Name Role Phone Abisai Hammond MD Primary Care Provider [phone] Angel Vargas MD Unavailable Unavailable Encounter Details Date Type Department Care Team (Late st Contact Info) Description 03/19/2024 Scanned Document [facility] RHEUMATOLOGY SCAN Rheumatology, Scan Social History Tobacco [...] on filedocumented in this encounter Care Teams Certified Histologic Technician Relationship Specialty Start Date End Date Abisai Hammond MD [address] [place] [address] PCP - General Pediatric, Adolescent Medicine 10/05/20 Angel Vargas MD [address] [place] [address] Rheumatology 02/16/24 documented as of this encounter
--- OUTSIDE RECORDS SUMMARY | 2025-03-25 15:56 | XMS_ITS | Clinical Summary ---
Author Organization [facility] Address [address] [place] [address] Care Team Providers Care Administrative Analyst Name Role Phone Abisai Hammond MD Primary Care Provider [phone] Angel Vargas MD Unavailable Unavailable Allergies Active [...] 09/15/2021, , 08/15/2017, Additional history exists Insurance [facility] Care Teams Administrative Analyst Relationship Specialty Start Date End Date Abisai Hammond MD [address] [place] [address] PCP - General Pediatric, Adolescent Medicine 10/05/20 Angel Vargas MD [address] [place] [address] Rheumatology 02/16/24
== END 2025-03-25 14:26 | disposition home or self-care (01) ==
LOC: HO.RHES 13:33
PROVIDERS: PCP Pediatrics Adolescent Medicine; Visit Provider Internal Medicine Rheumatology
DX: M45.0 Ankylosing spondylitis of multiple sites in spine (principal); Z79.899 Other long term (current) drug therapy
CPT/HCPCS: 99214

== ENCOUNTER → 2025-03-25 13:33 | Outpatient (BNVA) | payer OTHER, SELFPAY | PROVIDERS: PCP Pediatrics Adolescent Medicine; Visit Provider Internal Medicine Rheumatology ==

== ENCOUNTER 2025-07-01 13:09 | Outpatient (AMB) | payer OTHER, SELFPAY ==
--- OUTSIDE RECORDS SUMMARY | 2025-07-01 13:20 | XMS_ITS | Clinical Summary ---
Author Organization [facility] Address [address] [place] [address] Phone Care Team Providers Care Tie Tamper Name Role Phone Unavailable Primary Care Provider [...] seen regulary and doing well. Needs new Distribution Sales Representative- he will arrange w new provider. Humira [...] 88 12/06/2021 11:34 AM EST Temperature 36.6 C (97.8 F) 12/06/2021 11:34 AM EST Respiratory Rate - - Oxygen Saturation 99% 12/06/2021 11:34 AM EST Inhaled Oxygen Concentration - - Weight 61.3 kg (135 lb 2.3 oz) 12/06/2021 11:34 AM EST Height 166 cm (5' 5.35 ) 12/06/2021 11:34 AM EST Body Mass Index 22.25 12/06/2021 11:34 AM EST Plan of Treatment Health Maintenance Due Date Last Done Comments COVID-19 Vaccine (2023-2 5 season) 2024 12/12/2021, 04/14/2021, 03/20/2021 Influenza Vaccines (#1) 2025 09/15/20 21, 09/12/2018, 08/15/2017, Additional history exists DTaP,Tdap,and Td Vaccines (8 - Td or [...] 06/25/2018, 03/27/[address] [facility]
--- OUTSIDE RECORDS SUMMARY | 2025-07-01 13:20 | XMS_ITS ---
Author Name [facility] Organization Unknown History of Medication Use Medication Directions Dispensed Refills Start Date End Date Stat us busPIRone (BUSPAR) 7.5 MG tablet 01/14/2024 active citalopram (CeleXA) 20 MG tablet 03/29/2021 active Allergies Allergen Reaction Severity Comment Documented Date Source Statu s NUTS OTHER (SEE COMMENTS) 03/28/2022 [facility] active PISTACHIO NUT (DIAGNOSTIC) HIVES 03/30/2021 [facility] active Problems Problem Status Onset Date Problem [...] Ankylosing spondylitis of multiple sites in spine [facility] 04/03/2023 Ambulatory Ankylosing spondylitis of multiple sites in spine [facility] [employer] [facility] 03/28/2022 Care Team Organization Name Specialty Phone Email Start Date End Da te [facility] [employer] ABISAI HAMMOND Primary Care 03/28/2022 03/28/2022 [employer] Abisai Hammond Primary Care 03/28/2022
[2025-07-01 13:28] VITALS: BP 110/82; PULSE 66; O2SAT 99; BMI 23.8
--- NOTE | 2025-07-01 13:28 | A.OFFVIS_ITS ---
Vital Signs 07/01/25 13:28 Height 5 ft 5 in Weight 143 lb 2 oz BMI 23.8 BP 110/82 Blood Pressure Location Lt brachial Position Sitting Pulse 66 Pulse Source Pulse Oximeter Pulse Oximetry (%) 99 Oxygen Delivery Method Room Air Intake Visit Reasons: 3 Months Intake Note: Patient presents for . Accompanied by: Self / Same As Patient Allergies No Known Allergies Allergy (Verified 07/01/25 13:28) HPI HPI 3 Months: Details: He continues to have bilateral mid back pain when he wakes up in the morning lasting 10 minutes when it occurs. It occurs a few times a week. Notices it more when he is lying on his back. It does not occur when he is lying on his side. He describes the pain as soreness. Denies pleurisy. Denies any recent infections. Denies dactylitis, foot pain, psoriasis, iritis, bloody stools. Lower back pain is controlled. No changes to his exercise routine. He is moving to [place] in 2 weeks but we will continue to receive care with his current medical team. [facility] Medical History HLA-B27 positive MARIBELL (juvenile idiopathic arthritis) Surgical History No history of previous surgery Family History Brother Ankylosing spondylitis Mother No problems noted. Father No problems noted. Other Family history of arthritis Social History Alcohol intake: current Alcohol intake frequency: does not drink Patient Tobacco Use Status: Never used Tobacco Current occupational status: student Current occupation: [employer] Physical Exam Vital Signs: Last Vital Signs Pulse 66 07/01/25 13:28 BP 110/82 07/01/25 13:28 Pulse Ox 99 07/01/25 13:28 Oxygen Delivery Method Room Air 07/01/25 13:28 BMI result Body Mass Index 23.8 Const Other: General: Comfortable CVS: RRR Respiratory: clear to auscultation bilaterally. Good respiratory effort Skin: No lesions seen MSK: No synovitis. No tender joints. Normal range of motion of upper extremity and lower extremity. No tenderness to palpate SI joints. Negative MIRZA. Normal lumbar flexion. Normal cervical range of motion. Assessment & Plan Assessment & Plan (1) Ankylosing spondylitis of multiple sites in spine: Comment: He continues to experience bilateral mid back pain in the morning when he wakes up lasting 10 minutes. Denies having any breathing difficulties. Exam is significant for poor posture. Inflammatory markers 03/2025 are normal. There may be myofascial strain contributing to his pain. We discussed focusing on core strengthening and developing good posture with physical therapy, which he agrees to do. I will pursue further imaging with chest x-ray to evaluate for restrictive process or rib pathology. If there are abnormalities on chest x- ray, I will pursue PFTs for further evaluation. Ankylosing spondylitis can be associated with restrictive process affecting the lungs with restricting thoracic expanse ability. Patient agrees with plan. Rheumatology history: Positive HLA B27. dx 2016 initially diagnosed as MARIBELL presenting with lower buttocks pain. L>R buttock pain. In the past he had elevated CRP 0.9 from reviewing records (?mg/dL). Failed NSAIDs ibuprofen, diclofenac and meloxicam. Minimal benefit with sulfasalazine. Humira q.2 weeks 2015-present complete response. Spaced out by patient since 2022 to q4 weeks. Effective, then flare in 08/2024, humira back to 40mg [id number]. X-rays SI joints 2023 normal. Code(s): M45.0 - Ankylosing spondylitis of multiple sites in spine Category: Medical Plan: Labs for drug monitoring on high-risk medication ordered Continue with Humira 40 mg every 2 weeks Start meloxicam 15 mg daily for 2 weeks PT requisition given to patient. He will start physical therapy after he moves to [place]. PT for core strengthening, postural support, myofascial release, manual, and TENs unit trial Return to clinic in 3-4 months (2) Mid back pain: Code(s): M54.9 - Dorsalgia, unspecified Category: Medical Plan: See above (3) High risk medication use: Code(s): Z79.899 - [facility] [place] [facility] drug therapy Category: Medical Plan: See above Orders: Orders Alanine Aminotransferase Today Z79.899 - Other [place] drug therapy Erythrocyte Sedimentation Rate Today Z79.899 - Other [place] (current[facility] drug therapy Complete Blood Count Auto Diff Today Z79.899 - Other keno terminal operator (current) drug therapy Aspartate Amino Transferase Today Z79.89 - Other keno terminal operator (current) drug therapy Creatinine Today Z79.89 - Other keno terminal operator (current) drug therapy C Reactive Protein Today Z79.89 - Other [place] (current) drug therapy XR chest 2V Today M45.0 - Ankylosing spondylitis of multiple sites in spine, M54.9 - Dorsalgia, unspecified PT Evaluation and Treatment Today M45.0 - Ankylosing spondylitis of multiple sites in spine, M54.9 - Dorsalgia, unspecified Medications: New meloxicam Take with food 15 mg PO DAILY 30 tabs 0RF Refilled Humira(CF) (adalimumab) 40 mg (0.4 mL) subcut Q2W 2 ea 2RF NS Humira(CF) (adalimumab) 40 mg (0.4 mL) subcut Q2W 2 ea 5RF NS Coding Level of Care Code Est Pt Level 4 (66558) Complex EM visit Add On G2211 Diagnoses Ankylosing spondylitis of multiple sites in spine M45.0 Mid back pain M54.9 High risk medication use Z79.89
== END 2025-07-01 14:16 | disposition home or self-care (01) ==
LOC: HO.RHES 13:09
PROVIDERS: PCP Pediatrics Adolescent Medicine; Visit Provider Internal Medicine Rheumatology
DX: M45.0 Ankylosing spondylitis of multiple sites in spine (principal); M54.9 Dorsalgia, unspecified; Z79.899 Other long term (current) drug therapy
CPT/HCPCS: 99214; G2211

== ENCOUNTER 2025-07-01 13:09 | Outpatient (REF) | payer OTHER, SELFPAY ==
--- NOTE | ~2025-07-01 | XR_ITS ---
EXAMINATION: XR CHEST CLINICAL INFORMATION: M45.0 - Ankylosing spondylitis of multiple sites in spine COMPARISON: None available. TECHNIQUE: 2 views of the chest were obtained. FINDINGS: No consolidation pleural effusion or pneumothorax. Cardiomediastinal silhouette size is normal. Osseous structures are intact. Mild endplate sclerosis. No lytic or blastic lesions in the [id number] XR/XR chest 2V IMPRESSION: . Normal chest x-ray. Electronically signed by: Andrea Umana MD 07/01/2025 03:17 PM EDT
--- OUTSIDE RECORDS SUMMARY | 2025-07-01 14:33 | XMS_ITS | Encounter Summary ---
Author Organization [facility] Address [address] [place] [address] Care Team Providers Care Documentation Lead Name Role Phone Abisai Hammond MD Primary Care Provider [phone] Angel Vargas MD Unavailable Unavailable Encounter Details Date Type Department Care Team (Late st Contact Info) Description 03/19/2024 Scanned Document [facility] RHEUMATOLOGY SCAN Rheumatology, Scan Social History [...] on filedocumented in this encounter Care Teams Documentation Lead Relationship Specialty Start Date End Date Abisai Hammond MD [address] [place] [address] PCP - General Pediatric, Adolescent Medicine 10/05/20 Angel Vargas MD [address] [place] [address] Rheumatology 02/16/24 documented as of this encounter
[2025-07-01 17:49] LABS: MANUAL DIFF FLAG NO
[2025-07-01 18:15] LABS: Alanine Aminotransferase 20 U/L (0-40); Aspartate Amino Transferase 26 U/L (5-37); Estimated Glomerular Filt Rate > 60
[2025-07-01 18:28] LABS: Hematocrit 42.4 % (42.0-52.0); Hemoglobin 14.5 g/dl (14.0-18.0); Imm Gran Abs Auto 0.02 X10*3/uL (0.00-0.03); Imm Gran Pct Auto 0.3 % (0.0-0.4); Lymphocytes Absolute Auto 1.8 X10*3/uL (1.2-4.9); Mean Corpuscular HGB Conc 34.2 g/dl (31.0-36.0); Mean Corpuscular Hemoglobin 30.5 pg (27.0-33.0); Mean Corpuscular Volume 89.1 fL (80.0-98.0); NRBC Abs Auto 0.000 X10*3/uL (0.0-0.012); NRBC Pct Auto 0.0 /100WBC (0.0-0.2); Platelet Count 260 X10*3/uL (160-400); Red Blood Count 4.76 X10*6/uL (4.60-5.80); White Blood Count 6.8 X10*3/uL (4.8-10.8)
== END 2025-07-01 13:10 | disposition home or self-care (01) ==
LOC: HO.HKASLDS 13:09
PROVIDERS: PCP Pediatrics Adolescent Medicine; Visit Provider Internal Medicine Rheumatology
DX: M45.0 Ankylosing spondylitis of multiple sites in spine (principal); M54.9 Dorsalgia, unspecified; Z79.899 Other long term (current) drug therapy
CPT/HCPCS: 36415; 71046; 82565; 84450; 84460; 85025; 85652; 86140

== ENCOUNTER → 2025-07-01 14:54 | Outpatient (BNV) | payer OTHER, SELFPAY | PROVIDERS: PCP Pediatrics Adolescent Medicine; Visit Provider Radiology Diagnostic Radiology | DX: M45.0 Ankylosing spondylitis of multiple sites in spine (principal) | CPT/HCPCS: 71046 ==

== ENCOUNTER 2025-10-05 14:35 | Outpatient (AMB) | payer OTHER, SELFPAY ==
--- OUTSIDE RECORDS SUMMARY | 2025-09-30 15:15 | XMS_ITS | Encounter Summary ---
Author Organization [facility] Address [address] [place] [address] Care Team Providers Care Clinical Informatics Spec Name Role Phone Alden Coyne PA-C Primary Care Provider [phone] Encounter Details Date Type Department Care Team (Late st Contact Info) Description 09/30/2025 16:15 EDT Phlebotomy Only [facility] Laboratory Services - [address] [address] [facility] Ankylosing spondylitis of multiple sites in spine ([facility]); Dorsalgia, unspecified Social History Tobacco Use Types Packs/Day Years Used Date Smoking Tobacco: Never Assessed Sex and Gender Information Value Date Recorded Sex Assigned at Not on file Legal Sex Male 23:36 EDT Gender Identity Male 09/29/2025 0:23 EDT Sexual Orientation Not on file documented as of this encounter Plan of Treatment Not on file documented as of this encounter Procedures Procedure Name Priority Date/Time Associated Diagnosis Comments SED RATE Routine 09/30/2025 16:24 EDT Ankylosing spondylitis of multiple sites in spine ([facility]) Dorsalgia, unspecified C REACTIVE PROTEIN Routine 09/30/2025 16 :24 EDT Ankylosing spondylitis of multiple sites in spine ([facility]) Dorsalgia, unspecified documented in this encounter Results * SED RATE (09/30/2025 16:24 EDT) Sed Rate 10 0 - 15 mm/hr 09/30/2025 17:10 EDT [facility]OR[facility]ORY SERVICES Blood VENOUS BLOOD / Unknown Venipuncture / Unknown 09/30/2025 16:24 EDT 09/30/2025 16:24 EDT Doctor Sylvester CARLSON HEMATOLOGY & PF4 ORDERABLES Final Result Performing Organization Address City/[facility]/ZIP Co de Phone Number [facility] [address] [place] [address] * (ABNORMAL) C REACTIVE PROTEIN (09/30/2025 16:24 EDT) C-Reactive Protein 11.9(H) <10.0 mg/L 09/30/2025 17:37 EDT [facility] Blood VENOUS BLOOD / Unknown Venipuncture / Unknown 09/30/2025 16:24 EDT 09/30/2025 16:24 EDT Doctor Sylvester CARLSON CHEMISTRY & BLOOD GAS ORDER JELENA Final Result Performing Organization Address [facility] Co de Phone Number [facility] [address], [place] [phone] documented in this encounter Visit Diagnoses Diagnosis Ankylosing spondylitis of multiple sites in spine ([facility]) Ankylosing spondylitis Dorsalgia, unspecified documented in this encounter Care Teams Clinical Informatics Spec Relationship Specialty Start Date End Date Alden Coyne PA-C [address] [place] [address] PCP - General 09/28/25 documented as of this encounter
--- NOTE | 2025-10-05 14:51 | MHC.OFFVIS ---
Vital Signs 10/05/25 14:52 Height 5 ft 5 in Weight 148 lb 2.41 oz BMI 24.7 BP 120/70 Blood Pressure Location Lt brachial Position Sitting Pulse 68 Pulse Source Pulse Oximeter Pulse Oximetry (%) 98 Intake Visit Reasons: hip pain/ per MD Intake Note: Patient presents for right hip pain. Accompanied by: Self / Same As Patient Allergies No Known Allergies Allergy (Verified 10/05/25 14:52) HPI HPI hip pain/ per MD: Details: He had right lower back/buttocks pain progressively getting worse at night and in the morning for 2 weeks. Failed heating and meloxicam. A week after onset of symptoms he went to ER at [facility]. His mother who is a physician prescribed prednisone 30mg x3 days, 25mg x3 days x 20 mg starts today. Initially had benefit in reducing his back pain but then the benefit has plateaued. He has developed new back stiffness 2-3 day onset worse at night and in the morning. No joint swelling or dactylitis. URI - sorethroat, cough, sneeze, headache lasted 5 days a week before onset of symptoms. His insurance when not cover Humira. He started hadlima in July. In the past he has never flared after in infection on Humira. He has not felt uncomfortable with inspiration since the onset of his back pain. It was occurring 2-3 times a weeks in the morning when he wakes up prior to most recent flare. REPLACED BY [facility] Medical History HLA-B27 positive MARIBELL (juvenile idiopathic arthritis) Surgical History No history of previous surgery Family History Brother Ankylosing spondylitis Mother No problems noted. Father No problems noted. Other Family history of arthritis Social History Alcohol intake: current Alcohol intake frequency: does not drink Patient Tobacco Use Status: Never used Tobacco Current occupational status: student Current occupation: [employer] Physical Exam Vital Signs: Last Vital Signs Pulse 68 10/05/25 14:52 BP 120/70 10/05/25 14:52 Pulse Ox 98 10/05/25 14:52 BMI result Body Mass Index 24.7 Const Other: General: Comfortable CVS: RRR Respiratory: clear to auscultation bilaterally. Good respiratory effort Skin: No lesions seen MSK: No synovitis. No tender joints. Normal range of motion of upper extremity and lower extremity. No tenderness to right SI joint. Positive MIRZA. Normal lumbar flexion. Assessment & Plan Assessment & Plan (1) Ankylosing spondylitis of multiple sites in spine: Comment: Inflammatory back pain has flared on Hadlima since changing from Humira triggered by URI. CRP is elevated. He has normal ESR. He was in remission on Humira. Failed meloxicam, prednisone, heating pad and lidocaine patch. We discussed next steps in management with trying to obtain approval for Humira from his insurance. We also discussed considering Enbrel if insurance continues to refuse to approve Humira. Rheumatology history: Positive HLA B27. dx 2016 initially diagnosed as MARIBELL presenting with lower buttocks pain. L>R buttock pain. In the past he had elevated CRP 0.9 from reviewing records (?mg/dL). Failed NSAIDs ibuprofen, diclofenac and meloxicam. Minimal benefit with sulfasalazine. Humira q.2 weeks 2015-present complete response. Spaced out by patient since 2022 to q4 weeks. Effective, then flare in 08/2024, humira back to 40mg p5lbpec. X-rays SI joints 2023 normal. Humira switch to Hadlima 07/2025 due to insurance requirement. Code(s): M45.0 - Ankylosing spondylitis of multiple sites in spine Category: Medical Plan: Labs for drug monitoring ordered Continue with Hadlima 40 mg every 2 weeks Start nabumetone 500 mg twice a day. He will call office after a week if there is no change in his symptoms. I will then increase nabumetone to 750 mg twice a day I will request insurance to approve Humira for patient He will try applying ice to back Return to clinic in 3 months (2) Mid back pain: Code(s): M54.9 - Dorsalgia, unspecified Category: Medical Plan: See above (3) High risk medication use: Code(s): Z79.899 - Other snf (current) drug therapy Category: Medical Plan: See above Orders: Orders Alanine Aminotransferase Today Z79.899 - Other petroleum terminal plant operator (current) drug therapy Complete Blood Count Auto Diff Today Z79.899 - Other snf (current) drug therapy Aspartate Amino Transferase Today Z79.899 - Other snf (current) drug therapy Creatinine Today Z79.899 - Other petroleum terminal plant operator (current) drug therapy Medications: New nabumetone Take with food. Replace meloxicam 500 mg PO BID 60 tabs 2RF adalimumab (Humira(CF) Pen) 40 mg (0.4 mL) subcut Q14D 2 ea 2RF 28 days Refilled adalimumab-bwwd (Hadlima(CF) PushTouch) 40 mg (0.4 mL) subcut Q2W 0.8 mL 2RF Discontinued meloxicam Take with food Discontinued Reason: Doctor's Order 15 mg PO DAILY 30 tabs 0RF Coding Level of Care Code Est Pt Level 4 (21710) Complex EM visit Add On G2211 Diagnoses Ankylosing spondylitis of multiple sites in spine M45.0 Mid back pain M54.9 High risk medication use Z79.897
[2025-10-05 14:52] VITALS: BP 120/70; PULSE 68; O2SAT 98; BMI 24.7
--- OUTSIDE RECORDS SUMMARY | 2025-10-05 17:37 | XMS_ITS | Encounter Summary ---
Author Organization [facility] Address [address] [place] [address] Care Team Providers Care Welder Manufacture Name Role Phone Abisai Hammond MD Primary Care Provider [phone] Angel Vargas MD Unavailable Unavailable Encounter Details Date Type Department Care Team (Late st Contact Info) Description 03/19/2024 Scanned Document [facility] RHEUMATOLOGY SCAN Rheumatology, Scan Social History [...] on filedocumented in this encounter Care Teams Welder Manufacture Relationship Specialty Start Date End Date Abisai Hammond MD [address] [place] [address] PCP - General Pediatric, Adolescent Medicine 10/05/20 Angel Vargas MD [address] [place] [address] Rheumatology 02/16/24 documented as of this encounter
--- OUTSIDE RECORDS SUMMARY | 2025-10-05 17:37 | XMS_ITS | Encounter Summary ---
Author Organization [facility] Address [address] [place] [address] Phone Care Team Providers Care Hide Buffer Name Role Phone Abisai Hammond MD Primary Care Provider [phone] Encounter Details Date Type Department Care Team (Late st Contact Info) Description 08/21/2011 Conversion Encounter [facility] - [place] [address] [place] [address] Social History Tobacco Use Types Packs/Day Years [...] on filedocumented in this encounter Care Teams Hide Buffer Relationship Specialty Start Date End Date Abisai Hammond MD [address] [place] [address] PCP - General 04/09/18 05/25/22 documented as of this encounter
--- OUTSIDE RECORDS SUMMARY | 2025-10-05 17:37 | XMS_ITS | Encounter Summary ---
Author Organization [facility] Address [address] [place] [address] Care Team Providers Care Dollyman Name Role Phone Abisai Hammond MD Primary Care Provider [phone] Angel Vargas MD Unavailable Unavailable Encounter Details Date Type Department Care Team (Late st Contact Info) Description 10/20/[address] [facility] Rheumatology [address] [phone] Angel Vargas MD Social History Tobacco Use [...] on filedocumented in this encounter Care Teams Dollyman Relationship Specialty Start Date End Date Abisai Hammond MD [address] [place] [address] PCP - General Pediatric, Adolescent Medicine 10/05/20 Angel Vargas MD [address] [place] [address] Rheumatology 02/16/24 documented as of this encounter
--- OUTSIDE RECORDS SUMMARY | 2025-10-05 17:37 | XMS_ITS | Encounter Summary ---
Author Organization [facility] Address [address] [place] [address] Care Team Providers Care Manager Apple Name Role Phone Abisai Hammond MD Primary Care Provider [phone] Angel Vargas MD Unavailable Unavailable Encounter Details Date Type Department Care Team (Late st Contact Info) Description 05/02/2021 Scanned Document [facility] Rheumatology [address] [phone] Angel Vargas MD Social History Tobacco Use [...] on filedocumented in this encounter Care Teams Manager Apple Relationship Specialty Start Date End Date Abisai Hammond MD [address] [place] [address] PCP - General Pediatric, Adolescent Medicine 10/05/20 Angel Vargas MD [address] [place] [address] Rheumatology 02/16/24 documented as of this encounter
--- OUTSIDE RECORDS SUMMARY | 2025-10-05 17:37 | XMS_ITS | Clinical Summary ---
Author Organization [facility] Address [address] [place] [address] Phone Care Team Providers Care Performance Manager Name Role Phone Unavailable Primary Care Provider [...] seen regulary and doing well. Needs new Converting Technician- he will arrange w new provider. Humira [...] Date Last Done Comments Influenza Vaccines (#1) 2025 09/15/20, 09/12/2018, 08/15/2017, Additional history exists COVID-19 Vaccine (2024-2 6 season) 2025 12/12/2021, 04/14/2021, 03/20/2021 DTaP,Tdap,and Td Vaccines (8 [...] Men B Vaccine Completed 06/25/2018, 03/27/2017 Insurance [facility]
--- OUTSIDE RECORDS SUMMARY | 2025-10-05 17:37 | XMS_ITS | Encounter Summary ---
Author Organization [facility] Address [address] [place] [address] Care Team Providers Care Corporate Investigator Name Role Phone Abisai Hammond MD Primary Care Provider [phone] Angel Vargas MD Unavailable Unavailable Encounter Details Date Type Department Care Team (Late st Contact Info) Description 08/01/2021 Scanned Document [facility] Rheumatology [address] [phone] Angel Vargas MD Social History Tobacco Use [...] filedocumented in this encounter Care Teams Corporate Investigator Relationship Specialty Start Date End Date Abisai Hammond MD [address] [place] [address] PCP - General Pediatric, Adolescent Medicine 10/05/20 Angel Vargas MD [address] [place] [address] Rheumatology 02/16/24 documented as of this encounter
--- OUTSIDE RECORDS SUMMARY | 2025-10-05 17:37 | XMS_ITS | Encounter Summary ---
Author Organization [facility] Address [address] [place] [address] Care Team Providers Care Cardiac Technologist Name Role Phone Alden Coyne PA-C Primary Care Provider [phone] Encounter Details Date Type Department Care Team (Latest Contact Info) Description 09/30/2025 Transcribe Orders [facility] CLINICAL SUPPORT [place] Sylvester, MD Mickey Ankylosing spondylitis of multiple sites in spine ([facility]) (Primary Dx); Dorsalgia, unspecified Social History Tobacco Use Types Packs/Day Years Used Date Smoking Tobacco: Never Assessed Sex and Gender Information Value Date Recorded Sex Assigned at Not on file Legal Sex Male 23:36 EDT Gender Identity Male 09/29/2025 0:23 EDT Sexual Orientation Not on file documented as of this encounter Plan of Treatment Not on file documented as of this encounter Results * SED RATE (09/30/2025 16:24 EDT) Sed Rate 10 0 - 15 mm/hr 09/30/2025 17:10 EDT [facility] Blood VENOUS BLOOD / Unknown Venipuncture / Unknown 09/30/2025 16:24 EDT 09/30/2025 16:24 EDT us Doctor Transcribe HEMATOLOGY & PF4 ORDERABLES Final Result [facility] [address] [place], [place] [phone] * (ABNORMAL) C REACTIVE PROTEIN (09/30/2025 16:24 EDT) C-Reactive Protein 11.9(H) <10.0 mg/L 09/30/2025 17:37 EDT [facility] Blood VENOUS BLOOD / Unknown Venipuncture / Unknown 09/30/2025 16:24 EDT 09/30/2025 16:24 EDT us Doctor Transcribe CHEMISTRY & BLOOD GAS ORDER JELENA Final Result [facility] [address] [place] [address] documented in this encounter Visit Diagnoses Diagnosis Ankylosing spondylitis of multiple sites in spine ([facility] Primary Ankylosing spondylitis Dorsalgia, unspecified documented in this encounter Care Teams Cardiac Technologist Relationship Specialty Start Date End Date Alden Coyne PA-C [address] [facility] [place] [phone] PCP - General 09/28/25 documented as of this encounter
--- OUTSIDE RECORDS SUMMARY | 2025-10-05 17:37 | XMS_ITS | Encounter Summary ---
Author Organization [facility] Address [address] [place] [address] Care Team Providers Care Setter Cold Rolling Machine Name Role Phone Abisai Hammond MD Primary Care Provider [phone] Angel Vargas MD Unavailable Unavailable Encounter Details Date Type Department Care Team (Late st Contact Info) Description 02/15/2022 Scanned Document [facility] Rheumatology [address] [phone] Angel Vargas MD Social History Tobacco Use [...] on filedocumented in this encounter Care Teams Setter Cold Rolling Machine Relationship Specialty Start Date End Date Abisai Hammond MD [address] [place] [address] PCP - General Pediatric, Adolescent Medicine 10/05/20 Angel Vargas MD [address] [place] [address] Rheumatology 02/16/24 documented as of this encounter
--- OUTSIDE RECORDS SUMMARY | 2025-10-05 17:37 | XMS_ITS | Clinical Summary ---
Author Organization [facility] Address [address] [place] [address] Care Team Providers Care Manager Engagement Name Role Phone Abisai Hammond MD Primary Care Provider [phone] Angel Vargas MD Unavailable Unavailable Allergies Active [...] 57 04/03/2023 1:56 PM EDT Temperature 36.7 C (98 F) 04/03/2023 1:56 PM EDT Respiratory Rate - [...] risk series) 05/12/2021 04/14/2021, 03/20/2021 Influenza Vaccine 07/02/2025 09/15/2021, , 08/15/2017, Additional history exists Insurance [facility] Care Teams Manager Engagement Relationship Specialty Start Date End Date Abisai Hammond MD [address] [place] [address] PCP - General Pediatric, Adolescent Medicine 10/05/20 Angel Vargas MD [address] [place] [address] Rheumatology 02/16/24
--- OUTSIDE RECORDS SUMMARY | 2025-10-05 17:37 | XMS_ITS | Clinical Summary ---
Author Organization [facility] Address [address] [place] [address] Care Team Providers Care Waste Machine Tender Name Role Phone Alden Coyne PA-C Primary Care Provider [phone] Allergies No known active allergies Encounters Date Type Department Care Team Description 09/30/2025 16:15 EDT Phlebotomy Only [facility] Laboratory Services - [facility] [address] [place] [address] [facility] Ankylosing spondylitis of multiple sites in spine ([facility]); Dorsalgia, unspecified 09/30/2025 Transcribe Orders [facility] [place] Transcribe, DoctorMD Ankylosing spondylitis of multiple sites in spine ([facility]) (Primary Dx); Dorsalgia, unspecified 09/28/2025 23:44 EDT - 09/29/2025 1:11 EDT Emergency [facility] Emergency Department - Main [place] [address] [place] [address] Leona Berger MD Right hip pain (Primary Dx) Discharge Disposition: Home or Self Care from Last 3 Months Social History Tobacco Use Types Packs/Day Years Used Date Smoking Tobacco: Never Assessed Sex and Gender Information Value Date Recorded Sex Assigned at Not on file Legal Sex Male 23:36 EDT Gender Identity Male 09/29/2025 0:23 EDT Sexual Orientation Not on file Last Filed Vital Signs Vital Sign Reading Time Taken Comments Blood Pressure 126/84 09/29/2025 0109 EDT Pulse 68 09/29/2025 0109 EDT Temperature 36.6 C (97.9 F) 09/28/20252337 EDT Respiratory Rate 14 09/29/2025108 EDT Oxygen Saturation 98% 09/29/2025108 EDT Inhaled Oxygen Concentration - - Weight 63.5 kg (140 lb) 09/28/20252337 EDT Height 165.1 cm (5' 5 ) 09/28/20252337 EDT Body Mass Index 23.3 09/28/20252337 EDT Plan of Treatment Health Maintenance Due Date Last Done Comments Hepatitis C Screen 1999 Hepatitis B Vaccine (1 of 3 - 19+ 3-dose series) 12/28 COVID-19 Vaccine ( season) 2025 Procedures Procedure Name Priority Date/Time Associated Diagnosis Comments SED RATE Routine 09/30/2025 16:24 EDT Ankylosing spondylitis of multiple sites in spine ([facility]) Dorsalgia, unspecified C REACTIVE PROTEIN Routine 09/30/2025 16 :24 EDT Ankylosing spondylitis of multiple sites in spine ([facility]) Dorsalgia, unspecified XR PELVIS 1-2 VIEWS STAT 09/29/2025 0 :15 EDT from Last 3 Months Results * SED RATE (09/30/2025 16:24 EDT) Sed Rate 10 0 - 15 mm/hr 09/30/2025 17:10 EDT [facility] Blood VENOUS BLOOD / Unknown Venipuncture / Unknown 09/30/2025 16:24 EDT 09/30/2025 16:24 EDT us Doctor Transcribe HEMATOLOGY & PF4 ORDERABLES Final Result [facility] [address] [place] [address] * (ABNORMAL) C REACTIVE PROTEIN (09/30/2025 16:24 EDT) C-Reactive Protein 11.9(H) <10.0 mg/L 09/30/2025 17:37 EDT [facility] Blood VENOUS BLOOD / Unknown Venipuncture / Unknown 09/30/2025 16:24 EDT 09/30/2025 16:24 EDT us Doctor Transcribe CHEMISTRY & BLOOD GAS ORDER JELENA Final Result [facility] [address] [place], [place] [id number] * XR PELVIS 1-2 VIEWS (09/29/2025 0:15 EDT) Anatomical Region Laterality Modality Body, Pelvis Computed Radiogr aphy 09/29/2025 8:33 EDT Impressions 09/29/2025 8:33 EDT FINDINGS / IMPRESSION: No acute fracture or traumatic malalignment. Grossly normal radiographic appearance of SI joints on AP pelvis view (not optimized to evaluate SI joints); dedicated SI joint radiographs an/or MRI would be more sensitive for evidence of inflammatory sacroiliitis if clinically necessary. The soft tissues are grossly unremarkable. I have personally reviewed the images and the above interpretation and agree with the findings. [id number] Narrative 09/29/2025 8:33 EDT EXAM/TECHNIQUE: 09/29/2025 12:15 AM XR PELVIS 1-2 VIEWS 1 views HISTORY: Ankylosing spondylitis, sacroiliac joint pain COMPARISON: None Resulting Agency Comment [id number] Procedure Note Abhijit Reno, DO - 09/29/2025 EXAM/TECHNIQUE: 09/29/2025 12:15 AM XR PELVIS 1-2 VIEWS 1 views HISTORY: Ankylosing spondylitis, sacroiliac joint pain COMPARISON: None IMPRESSION FINDINGS / IMPRESSION: No acute fracture or traumatic malalignment. Grossly normal radiographicappearance of SI joints on AP pelvis view (not optimized to evaluate SIjoints); dedicated SI joint radiographs an/or MRI would be more sensitivefor evidence of inflammatory sacroiliitis if clinically necessary. Thesoft tissues are grossly unremarkable. I have personally reviewed the images and the above interpretation andagree with the findings. [id number] Leona Berger MD IMG DIAGNOSTIC IMAGIN G ORDERABLES Final Result from Last 3 Months Insurance Care Teams Waste Machine Tender Relationship Specialty Start Date End Date Alden Coyne PA-C [address] [facility] [phone] PCP - General 09/28/25
== END 2025-10-05 15:48 | disposition home or self-care (01) ==
LOC: HO.RHES 14:35
PROVIDERS: PCP Pediatrics Adolescent Medicine; Visit Provider Internal Medicine Rheumatology
DX: M45.0 Ankylosing spondylitis of multiple sites in spine (principal); M54.9 Dorsalgia, unspecified; Z79.899 Other long term (current) drug therapy
CPT/HCPCS: 99214; G2211

== ENCOUNTER 2025-10-06 09:33 | Outpatient (REF) | payer OTHER, SELFPAY ==
--- OUTSIDE RECORDS SUMMARY | 2025-10-06 10:46 | XMS_ITS | Encounter Summary ---
Author Organization [facility] Address [address] [place] [address] Care Team Providers Care Dust Handler Name Role Phone Abisai Hammond MD Primary Care Provider [phone] Angel Vargas MD Unavailable Unavailable Encounter Details Date Type Department Care Team (Late st Contact Info) Description 02/15/2022 Scanned Document [facility] Rheumatology [address] [phone] Angel Vargas MD Social History Tobacco Use [...] on filedocumented in this encounter Care Teams Dust Handler Relationship Specialty Start Date End Date Abisai Hammond MD [address] [place] [id number] PCP - General Pediatric, Adolescent Medicine 10/05/20 Angel Vargas MD [address] [place] [address] Rheumatology 02/16/24 documented as of this encounter
--- OUTSIDE RECORDS SUMMARY | 2025-10-06 10:46 | XMS_ITS | Encounter Summary ---
Author Organization [facility] Address [address] [place] [address] Care Team Providers Care Cook Fry Name Role Phone Abisai Hammond MD Primary Care Provider [phone] Angel Vargas MD Unavailable Unavailable Encounter Details Date Type Department Care Team (Late st Contact Info) Description 10/20/2021 Scanned Document [facility] Rheumatology [address] [phone] Angel Vargas MD Social History Tobacco Use [...] on filedocumented in this encounter Care Teams Cook Fry Relationship Specialty Start Date End Date Abisai Hammond MD [address] [place] [address] PCP - General Pediatric, Adolescent Medicine 10/05/20 Angel Vargas MD [address] [place] [phone] Rheumatology 02/16/24 documented as of this encounter
--- OUTSIDE RECORDS SUMMARY | 2025-10-06 10:46 | XMS_ITS | Encounter Summary ---
Author Organization [facility] Address [address] [place] [address] Phone Care Team Providers Care Biopsychologist Name Role Phone Abisai Hammond MD Primary Care Provider [phone] Encounter Details Date Type Department Care Team (Late st Contact Info) Description 08/21/2011 Conversion Encounter [facility] - [place] [address] [facility] [place] [id number] Social History Tobacco Use Types Packs/Day Years [...] on filedocumented in this encounter Care Teams Biopsychologist Relationship Specialty Start Date End Date Abisai Hammond MD [address] [facility] [place] [id number] PCP - General 04/09/18 05/25/22 documented as of this encounter
--- OUTSIDE RECORDS SUMMARY | 2025-10-06 10:46 | XMS_ITS | Clinical Summary ---
Author Organization [facility] Address [address] [place] [address] Care Team Providers Care Land Survey Technician Name Role Phone Abisai Hammond MD Primary Care Provider [phone] Angel Vargas MD Unavailable Unavailable Allergies Active [...] 09/15/2021, , 08/15/2017, Additional history exists Insurance [facility] Care Teams Land Survey Technician Relationship Specialty Start Date End Date Abisai Hammond MD [address] [place] [address] PCP - General Pediatric, Adolescent Medicine 10/05/20 Angel Vargas MD [address] [place] [address] Rheumatology 02/16/24
--- OUTSIDE RECORDS SUMMARY | 2025-10-06 10:46 | XMS_ITS | Encounter Summary ---
Author Organization [facility] Address [address] [place] [address] Care Team Providers Care Calibration Checker Name Role Phone Alden Coyne PA-C Primary Care Provider [phone] Encounter Details Date Type Department Care Team (Latest Contact Info) Description 09/30/2025 Transcribe Orders [facility] CLINICAL SUPPORT [place] Sylvester, MD Mickey Ankylosing spondylitis of multiple sites in spine ([facility]) (Primary Dx); Dorsalgia, unspecified Social History Tobacco [...] 0 - 15 mm/hr 09/30/2025 17:10 EDT [facility] Blood VENOUS BLOOD / Unknown Venipuncture / Unknown 09/30/2025 16:24 EDT 09/30/2025 16:24 EDT us Doctor Transcribe HEMATOLOGY & PF4 ORDERABLES Final Result [facility] [address] [place], [place] [address] * (ABNORMAL) C REACTIVE PROTEIN (09/30/2025 16:24 EDT) C-Reactive Protein 11.9(H) <10.0 mg/L 09/30/2025 17:37 EDT [facility] Blood VENOUS BLOOD / Unknown Venipuncture / Unknown 09/30/2025 16:24 EDT 09/30/2025 16:24 EDT us Doctor Transcribe CHEMISTRY & BLOOD GAS ORDER JELENA Final Result [facility] [address] [place] [address] documented in this encounter Visit Diagnoses Diagnosis Ankylosing spondylitis of multiple sites in spine ([facility])- Primary Ankylosing spondylitis Dorsalgia, unspecified documented in this encounter Care Teams Calibration Checker Relationship Specialty Start Date End Date Alden Coyne PA-C [address] [facility] [place] [phone] PCP - General 09/28/25 documented as of this encounter
--- OUTSIDE RECORDS SUMMARY | 2025-10-06 10:46 | XMS_ITS | Encounter Summary ---
Author Organization [facility] Address [address] [place] [address] Care Team Providers Care Drywall Hanger Framer Name Role Phone Abisai Hammond MD Primary Care Provider [phone] Angel Vargas MD Unavailable Unavailable Encounter Details Date Type Department Care Team (Late st Contact Info) Description 08/01/2021 Scanned Document [facility] Rheumatology [address] [phone] Angel Vargas MD Social History Tobacco Use [...] on filedocumented in this encounter Care Teams Drywall Hanger Framer Relationship Specialty Start Date End Date Abisai Hammond MD [address] [place] [address] PCP - General Pediatric, Adolescent Medicine 10/05/20 Angel Vargas MD [address] [place] [address] Rheumatology 02/16/24 documented as of this encounter
--- OUTSIDE RECORDS SUMMARY | 2025-10-06 10:46 | XMS_ITS | Clinical Summary ---
Author Organization [facility] Address [address] [place] [address] Care Team Providers Care Hadoop Analyst Name Role Phone Alden Coyne PA-C Primary Care Provider Allergies No known active allergies Encounters Date Type Department Care Team Description 09/30/2025 16:[address] [facility] [address] [place] [address] [facility]osing [facility]ond[facility] of [facility] sites in [facility]); Dorsalgia, unspecified 09/30/2025 Transcribe Orders [facility] CLINICAL SUPPORT [place] Transcribe, DoctorMD Ankylosing spondylitis of multiple sites in spine ([facility]) (Primary Dx); Dorsalgia, unspecified 09/28/2025 23:44 EDT - 09/29/2025 1:[address] [facility] Emergency Department - [place] [address] [place] [id number] Leona Berger MD Right hip pain (Primary [...] of multiple sites in spine ([facility]) Dorsalgia, unspecified XR PELVIS 1-2 VIEWS STAT 09/29/2025 0 :15 EDT from Last 3 Months Results * SED RATE (09/30/2025 16:24 EDT) Sed Rate 10 0 - 15 mm/hr 09/30/2025 17:[address] [facility] Blood VENOUS BLOOD / Unknown Venipuncture / Unknown 09/30/2025 16:24 EDT 09/30/2025 16:24 EDT us Doctor Transcribe HEMATOLOGY & PF4 ORDERABLES Final Result [facility] [address] [place] [address] * (ABNORMAL) C REACTIVE PROTEIN (09/30/2025 16:24 EDT) C-Reactive Protein 11.9(H) <10.0 mg/L 09/30/2025 17:[address] [facility] Blood VENOUS BLOOD / Unknown Venipuncture / Unknown 09/30/2025 16:24 EDT 09/30/2025 16:24 EDT us Doctor Transcribe CHEMISTRY & BLOOD GAS ORDER JELENA Final Result [facility] [address] [place], [place] [id number] * XR PELVIS 1-2 VIEWS (09/29/2025 0:15 [...] from Last 3 Months Insurance Care Teams Hadoop Analyst Relationship Specialty Start Date End Date Alden Coyne PA-C [address] [facility] [phone] PCP - General 09/28/25
--- OUTSIDE RECORDS SUMMARY | 2025-10-06 10:46 | XMS_ITS | Encounter Summary ---
Author Organization [facility] Address [address] [place] [address] Care Team Providers Care Talent Development Analyst Name Role Phone Abisai Hammond MD Primary Care Provider [phone] Angel Vargas MD Unavailable Unavailable Encounter Details Date Type Department Care Team (Late st Contact Info) Description 03/19/2024 Scanned Document [facility] RHEUMATOLOGY SCAN Rheumatology, Scan Social [...] on filedocumented in this encounter Care Teams Talent Development Analyst Relationship Specialty Start Date End Date Abisai Hammond MD [address] [place] [id number] PCP - General Pediatric, Adolescent Medicine 10/05/20 Angel Vargas MD [address] [place] [address] Rheumatology 02/16/24 documented as of this encounter
--- OUTSIDE RECORDS SUMMARY | 2025-10-06 10:46 | XMS_ITS | Encounter Summary ---
Author Organization [facility] Address [address] [place] [address] Care Team Providers Care Drug Discovery Informatics Specialist Name Role Phone Abisai Hammond MD Primary Care Provider Angel Vargas MD Unavailable Unavailable Encounter Details Date Type Department Care Team (Late st Contact Info) Description 05/02/2021 Scanned Document [facility] Rheumatology [address] [phone] Angel Vargas MD Social History Tobacco Use [...] on filedocumented in this encounter Care Teams Drug Discovery Informatics Specialist Relationship Specialty Start Date End Date Abisai Hammond MD [address] [place] [phone] PCP - General Pediatric, Adolescent Medicine 10/05/20 Angel Vargas MD [address] [place] [phone] Rheumatology 02/16/24 documented as of this encounter
--- OUTSIDE RECORDS SUMMARY | 2025-10-06 10:46 | XMS_ITS | Clinical Summary ---
Author Organization [facility] Address [address] [place] [address] Phone Care Team Providers Care Wad Lubricator Name Role Phone Unavailable Primary Care Provider [...] seen regulary and doing well. Needs new Radiography Technician- he will arrange w new provider. [...] Vaccine Completed 06/25/2018, 03/27/2017 Insurance [facility]
[2025-10-06 13:33] LABS: MANUAL DIFF FLAG NO
[2025-10-06 13:42] LABS: Hematocrit 44.5 % (42.0-52.0); Hemoglobin 14.9 g/dl (14.0-18.0); Imm Gran Abs Auto 0.06 X10*3/uL (0.00-0.03); Imm Gran Pct Auto 0.6 % (0.0-0.4); Lymphocytes Absolute Auto 2.4 X10*3/uL (1.2-4.9); Mean Corpuscular HGB Conc 33.5 g/dl (31.0-36.0); Mean Corpuscular Hemoglobin 30.6 pg (27.0-33.0); Mean Corpuscular Volume 91.4 fL (80.0-98.0); NRBC Abs Auto 0.000 X10*3/uL (0.0-0.012); NRBC Pct Auto 0.0 /100WBC (0.0-0.2); Platelet Count 307 X10*3/uL (160-400); Red Blood Count 4.87 X10*6/uL (4.60-5.80); White Blood Count 10.8 X10*3/uL (4.8-10.8)
[2025-10-06 14:20] LABS: Alanine Aminotransferase 16 U/L (0-40); Aspartate Amino Transferase 23 U/L (5-37); Estimated Glomerular Filt Rate > 60
== END 2025-10-06 09:34 | disposition home or self-care (01) ==
LOC: HO.HKASLDS 09:33
PROVIDERS: PCP Physician Assistant; Visit Provider Internal Medicine Rheumatology
DX: Z79.899 Other long term (current) drug therapy (principal)
CPT/HCPCS: 36415; 82565; 84450; 84460; 85025